=== PATIENT | female | born 1980 ===

== ENCOUNTER 2017-04-15 17:28 | Emergency (ER) | payer MEDICAID ==
[2017-04-15 17:44] VITALS: BMI 25.6
[2017-04-15 17:56] VITALS: RESP 16; TEMP 98.2; O2SAT 100
[2017-04-15] MEDS ORDERED: TDAP Vaccine 0.5 mL Syr IM ONE (18:04)
[2017-04-15] MEDS ORDERED: Lidocaine 2% Inj (20ml) IJ STA (19:03)
[2017-04-15] MEDS ORDERED: Lidocaine 1% Inj (20ml) ONE (19:06)
--- NOTE | 2017-04-15 19:48 | ED PDOC ---
Arrival/HPI - General Chief Complaint: Abnormal Skin Integrity Time Seen by Provider: 04/15/17 18:04 Historian: Patient - History of Present Illness Narrative History of Present Illness (Text): 04/15/17 19:48 36-year-old female presents today with a laceration to the left second finger status post injury. Patient states she cut her finger with a knife. She denies numbness weakness or tingling in the family. She is complaining of pain to the laceration site. Patient is unsure of her last tetanus shot. No medications have been taken for pain at home. Incident occurred prior to arrival. Time/Duration: Prior to Arrival Symptom Onset: Sudden Symptom Course: Unchanged Quality: Stabbing, Burning, Throbbing Severity Level: 8 Past Medical History - Provider Review Nursing Documentation Reviewed: Yes - Travel History Have you recently traveled outside [place] w/in the past 3 mons?: No - Infectious Disease Hx of Infectious Diseases: None - Tetanus Immunization Tetanus Immunization: Unknown - Cardiac Hx Cardiac Disorders: No - Pulmonary Hx Asthma: Yes - Neurological Hx Neurological Disorder: No - HEENT Hx HEENT Disorder: No - Renal Hx Kidney Stones: Yes - Endocrine/Metabolic Hx Endocrine Disorders: No - Hematological/Oncological Hx Blood Disorders: No - Integumentary Hx Dermatological Disorder: No - Musculoskeletal/Rheumatological Hx Musculoskeletal Disorders: No - Gastrointestinal Hx Gastrointestinal Disorders: No - Genitourinary/Gynecological Hx Genitourinary Disorders: No - Psychiatric Hx Psychophysiologic Disorder: No Hx Substance Use: No - Surgical History Hx Tubal Ligation: Yes - Anesthesia Hx Anesthesia: Yes Hx Anesthesia Reactions: No Hx Malignant Hyperthermia: No Family/Social History - Physician Review Nursing Documentation Reviewed: Yes Family/Social History: Unknown Family HX Smoking Status: Never Smoked Hx Alcohol Use: Yes Frequency of alcohol use: Socially Hx Substance Use: No Allergies/Home Meds Allergies/Adverse Reactions: Allergies No Known Allergies Allergy (Verified 04/15/17 17:44) Review of Systems - Review of Systems Constitutional: absent: Fatigue, Fevers Respiratory: absent: SOB, Cough Cardiovascular: absent: Chest Pain, Palpitations Gastrointestinal: absent: Abdominal Pain, Diarrhea, Nausea, Vomiting Genitourinary Female: absent: Dysuria Musculoskeletal: Arthralgias. absent: Back Pain, Neck Pain Skin: Laceration Neurological: absent: Headache, Dizziness Psychiatric: absent: Anxiety, Depression Physical Exam Vital Signs Reviewed: Yes Vital Signs Temp Pulse Resp BP Pulse Ox 04/15/17 17:55 98.2 F 78 16 100/52 L 100 Temperature: Afebrile Blood Pressure: Normal Pulse: Regular Respiratory Rate: Normal Appearance: Positive for: Well-Appearing, Non-Toxic, Comfortable Pain Distress: None Mental Status: Positive for: Alert and Oriented X 3 - Systems Exam Head: Present: Atraumatic Mouth: Present: Moist Mucous Membranes Neck: Present: Normal Range of Motion Respiratory/Chest: Present: Clear to Auscultation Cardiovascular: Present: Regular Rate and Rhythm Upper Extremity: Present: Normal ROM, NORMAL PULSES, Tenderness (Left second finger: There is a 2 cm V-shaped laceration noted to the volar aspect of the second finger over the middle phalanx. no active bleeding; full rom of finger. sensation and distal pulses intact. cap refill <2. ), Capillary Refill < 2s. No : Swelling, Erythema, Neurovascularly Intact, Deformity Neurological: Present: GCS=15, Speech Normal Skin: Present: Warm, Dry Psychiatric: Present: Alert, Oriented x 3 Medical Decision Making ED Course and Treatment: 04/15/17 19:50 Patient is nontoxic well appearing in no distress. Vital signs are stable. Wound irrigated well with high pressure irrigation Tetanus updated Motrin Keflex by mouth Laceration repair: 4 sutures placed finger splint, Bacitracin and dressing applied Patient was advised to keep the wound clean and dry, apply bacitracin twice daily. Advised to return immediately if signs of infection develop or return if any other concerning symptoms develop Patient verbalizes understanding of discharge instructions and need for immediate followup. Impression: Laceration, finger Motrin every 6 hours as needed for pain Keflex 1 capsule 4 times daily 7 days Keep the wound clean and dry, apply bacitracin twice daily Return in 7-10 days for suture removal Return immediately if signs of infection develop: High fevers, increasing pain, redness, swelling, purulent discharge Follow up with the hand specialist/surgeon within the next 2 days. Followup with primary care physician within the next 2 days Return if any other concerning symptoms develop - Medication Orders Current Medication Orders: Discontinued Medications Ibuprofen (Motrin Tab) 600 mg PO STAT STA Stop: 04/15/17 18:05 Last Admin: 04/15/17 18:16 Dose: 600 mg MAR Pain/Vitals Document 09/26/17 18:16 OCS (Rec: 04/15/17 18:17 OCS [place] [id number]) Pain Reassessment Is This A Pain ReAssessment? Yes Sleep Is patient sleeping during reassessment? No Presence of Pain Presence of Pain Yes Pain Scale Used Pain Scale Used Numeric Location Left, Right or Bilateral Left Pain Location Body Site Left Index Finger Description Constant Intensity 10 Scale Used Numeric Re-Assess: [facility] Pain/Vitals Document 04/15/17 19:16 OCS (Rec: 04/15/17 19:36 OCS [place] [id number]) Pain Reassessment Is This A Pain ReAssessment? Yes Sleep Is patient sleeping during reassessment? No Presence of Pain Presence of Pain Yes Pain Scale Used Pain Scale Used Numeric Location Intensity 5 Lidocaine HCl (Lidocaine 2% 20ml Vial) 3 ml IJ ONCE STA Stop: 04/15/17 19:04 Last Admin: 04/15/17 19:09 Dose: 3 ml Lidocaine HCl (Lidocaine 1% (20ml)) Confirm Administered Dose 20 ml .ROUTE .STK- MED ONE Stop: 04/15/17 19:07 Tetanus/Reduced Diphtheria/Acell Pertussis (Boostrix Vaccine Inj) 0.5 ml IM .ONCE ONE Stop: 04/15/17 18:05 Last Admin: 04/15/17 18:17 Dose: 0.5 ml [facility] Immunization Data Document 04/15/17 18:17 OCS (Rec: 04/15/17 18:18 OCS [place] [id number]) Immunization Data Vaccine Lot Number [id number] Vaccine Expiration Date 03/06/20 Site Given Right Deltoid Procedure: Wound Repair - Procedure Procedure: Wound Repair: laceration, finger - Consent Obtained Consent obtained: Verbal - Performed by Performed by: Mid-level Provider - Indications Indication(s):: Laceration - Location Finger:: Left, Index Shape:: Other (v shaped) Dimensions Length cm: 2cm Depth:: Epidermis - Anesthetic Technique Anesthetic Technique: Regional block (digital block) Local/Regional Anesthetic:: Lidocaine 1% - Debris Debris:: None - Irrigated Irrigated with ml of normal saline: copious amounts of NS using high pressure irrigation - Complexity Complexity:: Simple (one layer) - Wound repair method Sutures:: # (4), Size (4.0), Type (nylon), Technique (interrupted) - Complications Complications: none - Patient tolerated procedure Patient Tolerated Procedure:: Well Disposition/Present on Arrival - Present on Arrival Any Indicators Present on Arrival: No History of DVT/PE: No History of Uncontrolled Diabetes: No Urinary Catheter: No History of Decub. Ulcer: No History Surgical Site Infection Following: None - Disposition Have Diagnosis and Disposition been Completed?: Yes Diagnosis: Laceration of finger Disposition: HOME/ ROUTINE Disposition Time: 19:45 Patient Plan: Discharge Condition: GOOD Discharge Instructions (ExitCare): Finger Laceration (ED) Additional Instructions: Motrin every 6 hours as needed for pain Keflex 1 capsule 4 times daily 7 days Keep the wound clean and dry, apply bacitracin twice daily Return in 7-10 days for suture removal Return immediately if signs of infection develop: High fevers, increasing pain, redness, swelling, purulent discharge Follow up with the hand specialist/surgeon within the next 2 days. Followup with primary care physician within the next 2 days Return if any other concerning symptoms develop Prescriptions: Cephalexin [Keflex] 500 mg PO QID #28 capsule Ibuprofen [Motrin] 600 mg PO Q6H PRN #20 tab PRN Reason: pain/fever reduction Referrals: Shaik Bangura MD [Primary Care Provider] - Follow up with primary Jessie Rivas MD [Non-Staff] - Follow up with primary Leno López MD [Medical Doctor] - Follow up with primary Forms: [facility] (Sinhala), WORK NOTE
[2017-04-15 20:14] VITALS: BP 110/59; PULSE 70
== END 2017-04-15 19:50 | disposition home or self-care (01) ==
LOC: ED 17:28
DX: S61.211A Laceration without foreign body of left index finger without damage to nail, initial encounter (principal); W26.0XXA Contact with knife, initial encounter; Y93.89 Activity, other specified; Y92.89 Other specified places as the place of occurrence of the external cause; Z23 Encounter for immunization

== ENCOUNTER 2017-04-29 09:20 | Emergency (ER) | payer MEDICAID, OTHER ==
[2017-04-29 09:20] VITALS: BMI 25.6
[2017-04-29 09:39] VITALS: BP 116/77; PULSE 64; RESP 18; TEMP 98.3; O2SAT 97
--- NOTE | 2017-04-29 10:00 | ED PDOC ---
Arrival/HPI - General Chief Complaint: Suture/Staple Removal Time Seen by Provider: 04/29/17 09:57 Historian: Patient - History of Present Illness Narrative History of Present Illness (Text): 04/29/17 09:57 This 36-year-old female presents to the emergency department requesting suture removal. She stated she had a laceration repair 11 days ago. She noted four sutures to be removed. Patient denies new complaints. Time/Duration: Other (See HPI) Context: Home Past Medical History - Provider Review Nursing Documentation Reviewed: Yes - Infectious Disease Hx of Infectious Diseases: None - Tetanus Immunization Tetanus Immunization: Unknown - Cardiac Hx Cardiac Disorders: No - Pulmonary Hx Asthma: Yes - Neurological Hx Neurological Disorder: No - HEENT Hx HEENT Disorder: No - Renal Hx Kidney Stones: Yes - Endocrine/Metabolic Hx Endocrine Disorders: No - Hematological/Oncological Hx Blood Disorders: No - Integumentary Hx Dermatological Disorder: No - Musculoskeletal/Rheumatological Hx Musculoskeletal Disorders: No - Gastrointestinal Hx Gastrointestinal Disorders: No - Genitourinary/Gynecological Hx Genitourinary Disorders: No - Psychiatric Hx Psychophysiologic Disorder: No Hx Substance Use: No - Surgical History Hx Tubal Ligation: Yes - Anesthesia Hx Anesthesia: Yes Hx Anesthesia Reactions: No Hx Malignant Hyperthermia: No Family/Social History - Physician Review Nursing Documentation Reviewed: Yes Family/Social History: Other (Noncontributory) Smoking Status: Never Smoked Hx Alcohol Use: Yes Frequency of alcohol use: Socially Hx Substance Use: No Allergies/Home Meds Allergies/Adverse Reactions: Allergies No Known Allergies Allergy (Verified 04/29/17 09:39) Review of Systems - Review of Systems Constitutional: Normal. absent: Fatigue, Weight Change, Fevers Eyes: Normal ENT: Normal Respiratory: Normal Cardiovascular: Normal Gastrointestinal: Normal Genitourinary Female: Normal Musculoskeletal: Other (Left index finger healing wound) Skin: Normal Neurological: Normal Endocrine: Normal Hemo/Lymphatic: Normal Psychiatric: Normal Physical Exam Vital Signs Temp Pulse Resp BP Pulse Ox 04/29/17 09:36 98.3 F 64 18 116/77 97 04/29/17 09:20 98.3 F 64 18 116/77 97 Temperature: Afebrile Blood Pressure: Normal Pulse: Regular Respiratory Rate: Normal Appearance: Positive for: Well-Appearing, Non-Toxic, Comfortable Pain Distress: None Mental Status: Positive for: Alert and Oriented X 3 - Systems Exam Head: Present: Atraumatic, Normocephalic Pupils: Present: PERRL Extroacular Muscles: Present: EOMI Conjunctiva: Present: Normal Mouth: Present: Moist Mucous Membranes Neck: Present: Normal Range of Motion Upper Extremity: Present: Normal ROM, NORMAL PULSES, Neurovascularly Intact, Capillary Refill < 2s, Other (Left index finger has [address] Wound appears to be healing well. No cellulitis or drainage. No dehiscense). No: Cyanosis, Edema, Tenderness, Swelling, Erythema Lower Extremity: Present: Normal Inspection, NORMAL PULSES, Normal ROM Neurological: Present: GCS=15, CN II-XII Intact, Speech Normal, Motor Func Grossly Intact, Normal Sensory Function, Normal Cerebellar Funct, Gait Normal, Memory Normal Skin: Present: Warm, Dry, Normal Color. No: Rashes Psychiatric: Present: Alert, Oriented x 3, Normal Insight, Normal Concentration Medical Decision Making ED Course and Treatment: 04/29/17 10:01 Patient came for suture removal. Sutures were removed without complications. She was commented to return to emergency if wound becomes swollen, redness, or drainage. Re-evaluation Time: 10:02 Reassessment Condition: Re-examined, Improved - Procedure PROCEDURE NOTE (Text): 04/29/17 10:00 Procedure: Under sterile technique. Wound was clean with saline and water. 4 sutures were removed without complication. She tolerated procedure well Disposition/Present on Arrival - Present on Arrival Any Indicators Present on Arrival: No History of DVT/PE: No History of Uncontrolled Diabetes: No Urinary Catheter: No History of Decub. Ulcer: No History Surgical Site Infection Following: None - Disposition Have Diagnosis and Disposition been Completed?: Yes Diagnosis: Encounter for removal of sutures, Encounter for wound re-check Disposition: HOME/ ROUTINE Disposition Time: 10:05 Patient Plan: Discharge Patient Problems: Current Active Problems Problem Status Onset Encounter for removal of sutures Acute Encounter for wound re-check Acute Condition: GOOD Discharge Instructions (ExitCare): Stitches Removal (ED) Additional Instructions: Call private doctor as needed for any further medical care. Return to emergency if there is any new symptoms or if wound becomes infected. Referrals: [facility] [Outside] - Follow up with primary [facility] [Outside] - Follow up with primary
== END 2017-04-29 10:20 | disposition home or self-care (01) ==
LOC: ED 09:20
DX: Z48.02 Encounter for removal of sutures (principal)